=== PATIENT | female | born 1965 | race Asian ===

== ENCOUNTER 2017-06-18 07:52 | Day surgery (SDC) | payer OTHER ==
[2017-06-18] MEDS ORDERED: LACTATED RINGERS 1,000 ML IV ONE (08:01)
--- NOTE | 2017-06-18 09:29 | HISTORY & PHYSICAL EXAMINATION ---
HPI - History of Present Illness HPI Comment/Other: Here for screening colonoscopy Past Medical History: Reviewed history and no changes required: Low back pain Dermititis Right lateral epicondylitis Past Surgical History: Reviewed history and no changes required: Bone grafting of right jaw 2014 Family History Summary: Reviewed history and no changes required: 04/24/2017 Mother () - Has Family History of Other Medical Problems - Breast cancer - Entered On: 04/24/2017 Father () - Has Family History of Other Medical Problems - Pancreatic cancer - Entered On: 04/24/2017 Risk Factors: Smoked Tobacco Use: Never smoker Drug use: no Alcohol use: no Exercise: yes Times per week: 5 Type of Exercise: treadmill Review of Systems See HPI Problems were reviewed with the patient during this visit. Medications were reviewed with the patient during this visit. No known meds. Allergies were reviewed with the patient during this visit. No known allergies. Physical Exam General: well developed, well nourished, in no acute distress Lungs: clear bilaterally to A & P Heart: regular rate and rhythm, S1, S2 without murmurs, rubs, gallops, or clicks Abdomen: bowel sounds positive; abdomen soft and non-tender without masses, organomegaly, or hernias noted Pulses: pulses normal in all 4 extremities Extremities: no clubbing, cyanosis, edema, or deformity noted with normal full range of motion of all joints Cervical Nodes: no significant adenopathy Psych: alert and cooperative; normal mood and affect; normal attention span and concentration Impression & Recommendations: Problem # 1: Screening for colon cancer Proceed with colonoscopy. 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
[2017-06-18] MEDS ORDERED: fentaNYL 100 MCG/2 ML VIAL IVP ONE (09:33)
[2017-06-18] MEDS ORDERED: MIDAZOLAM 2 MG/2 ML VIAL IVP ONE (09:33)
[2017-06-18 10:52] VITALS: BP 119/63
== END 2017-06-18 07:53 | disposition home or self-care (01) ==
LOC: SDS 07:52
PROVIDERS: ATTEND Surgery
PROC: 0DBP8ZX Excision of Rectum, Via Natural or Artificial Opening Endoscopic, Diagnostic (ICD-10-PCS; principal; 2017-06-18 09:00)
DX: Z12.11 Encounter for screening for malignant neoplasm of colon (principal); D12.8 Benign neoplasm of rectum
CPT/HCPCS: 45380; 45385; J7120

== ENCOUNTER 2022-12-05 11:02 | Outpatient (CLI) | payer OTHER ==
[2022-12-05 11:51] VITALS: BP 110/72
--- NOTE | 2022-12-05 11:51 | SLEEP CARE CONSULTATION ---
Information from patient questionnaire entered by Ruth Ann Prescott. I have reviewed and concur with the information entered by Ruth Ann Prescott. This document represents the service I personally performed and the decisions made by me, Rani Ybarra ARNP. History of Present Illness Service Date and Time: 12/05/2022 1102 Reason for Visit: New patient Chief Complaint: reports: Snoring Date of Onset: YRS Usual bedtime: MIDNIGHT Time it takes to fall asleep: MAYBE HALF AN HR Snores at night: Yes Observed to quit breathing while asleep: No Sleeps alone due to snoring: No Number of times waking at night: 0 Reasons for waking at night: reports: Bathroom (SELDOM). denies: Choking, Snoring, Gasping for air Toss, Turn, or Twitch while sleeping: No Recalls having dreams: Yes Usually gets out of bed at: 9-10AM Feels refreshed in the morning: Yes Morning headache: No Sleepy or fatigued during the day: No Ever fallen asleep while driving: No Takes day naps: No (rarely) Dreams during day naps: No Prior sleep studies: No Additional HPI information: I had the pleasure of seeing NURYS CEVALLOS today regarding the possibility of her having a sleep disorder. Her current complaint is snoring. She states her was diagnosed sleep apnea recently and just got his CPAP. She has been told by her children that she snores for many years. Her also agrees with the snoring but has not told her she has pauses in breathing or gasping in her sleep. 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 Patient is and lives in [place]. Have you smoked in the past 12 months: No Alcohol use: Yes Alcohol amount and frequency: SOCIAL DRINKING ONLY Caffeine use: Yes Caffeine amount and frequency: 1-2 COFFEE A WEEK TEA 4 X WEEK Family History Family history of sleep disordered breathing: Yes (her cousin and son diagnosed with sleep apnea) Family Hx Sleep Apnea: Mother: Snoring Allergies and Home Medications Known drug allergies: No Drug allergies reviewed: Yes (NKDA) Home medication list reviewed: Yes Allergy and home medication list: Medications: Amlodipine 2.5 mg daily Vitamins Review of Systems Cardiovascular: reports: high blood pressure Gastrointestinal: denies: heartburn Neurological: denies: headaches, head trauma Psychiatric: denies: anxiety, depression Ear/Nose/Throat: denies: tonsillectomy, wisdom teeth removed Endocrine: denies: thyroid disease Physical Exam Vital signs obtained and entered by: RUTH ANN Roque MA Blood Pressure: 110/72 (LEFT ARM) Cuff size: regular Heart Rate: 92 O2 Saturation: 99 Height: 5 ft 3 in Weight: 121 lb 9.6 oz Body Mass Index: 21.5 BMI Classification: Normal Neck circumference: 13.5 Mouth and throat: narrow oropharynx Soft palate: normal Hard palate: normal Uvula: normal Uvula visualization: 25% Mallampati Class III Tongue: enlarged in size with teeth friedman on lateral edges Tonsils: small Neck: normal w/o lymphadenopathy or thyromegaly Heart: regular rate and rhythm Lungs: clear bilaterally Impression and Plan 1. Suspected Obstructive Sleep Apnea-Hypopnea Syndrome, as suggested by a history of loud and irregular snoring and hypertension. Narrow oropharynx and obesity are common predisposing factors for obstructive sleep apnea-hypopnea s yndrome. I recommend proceeding to polysomnography to confirm the diagnosis and to assess severity. If the patient has significant sleep disordered breathing, a manual CPAP titration study will also be performed to find the optimal treatment pressure. I informed the patient of what the sleep studies involve and after some discussion, obtained agreement to proceed. The pathophysiology of obstructive sleep apnea-hypopnea syndrome was discussed with the patient and health risks of cardiovascular and cerebrovascular disease if not treated. Risks of drowsy driving discussed in detail and patient advised to avoid long distance driving and to line puller at the first sign of drowsiness. Patient agreed to plan. * Schedule polysomnography * Avoid alcohol, sedative and muscle relaxant around bedtime. * Review instructions provided by trained office staff on how to prepare for the sleep study. * Return for follow-up after sleep study completed. Visit Type: In Office Time Spent with Patient (minutes): 32 Provider Statement: I spent 100% of the Face to Face Visit with the patient with greater than 50% spent counseling the patient and coordination of care.
== END 2022-12-05 11:03 | disposition home or self-care (01) ==
LOC: SC 11:02
PROVIDERS: ATTEND Nurse Practitioner Family
DX: R06.83 Snoring (principal); I10 Essential (primary) hypertension
CPT/HCPCS: 99203; 99212

== ENCOUNTER 2023-01-15 22:12 | Outpatient (CLI) | payer OTHER | END 2023-01-15 22:13 | disposition home or self-care (01) | LOC: SC 22:12 | PROVIDERS: ATTEND Nurse Practitioner Family | DX: R06.83 Snoring (principal); I10 Essential (primary) hypertension | CPT/HCPCS: 95810 ==

== ENCOUNTER 2023-01-28 09:20 | Outpatient (CLI) | payer OTHER ==
[2023-01-28 09:43] VITALS: BP 122/70
--- NOTE | 2023-01-28 09:43 | SLEEP CARE CONSULTATION ---
Information from patient questionnaire entered by Vika Prescott. I have reviewed and concur with the information entered by Vika Prescott. This document represents the service I personally performed and the decisions made by , Rani Ybarra ARNP. History of Present Illness Service Date and Time: 01/28/2023919 Initial Alexander Sleepiness Scale score: 1 (12/05/22) Current Alexander Sleepiness Scale score: 0 (01/28/23) Additional HPI information: NURYS CEVALLOS returns for follow up and results of the recently performed polysomnography. The patient was informed of the following findings: No significant sleep disordered breathing with an average AHI of 0.0 and talita oxygen saturation of 82%. I explained the pathophysiology behind obstructive sleep apnea. Patient does not have sleep apnea and was advised how weight gain could increase the risk of developing sleep apnea in the future. Patient has light to loud snoring. Snoring can be reduced by weight loss. Weight loss is best achieved with diet consult. Patient instructed to contact PCP for referral. Snoring can also be treated with an oral appliance from a dentist. Advised to check insurance coverage. In addition, an ENT evaluation can be do to see if other treatment is indicated. Patient does not drink significant alcohol, socially only. Patient was cautioned about risks of drowsy driving until sleepiness symptoms resolve. Patient denies drowsy driving. Sleep Study - Results Type of Sleep Study: Polysomnography (COMPLETED 01/15/23) Prior sleep studies: No Polysomnography/Home Sleep Study results: IMPRESSION: The quality of the study is good. The patient had reduced sleep efficiency due to several prolonged awakenings during the night. The sleep architecture was abnormal for lack of REM sleep. Respiratory monitoring showed no significant sleep disordered breathing (AHI = 0.0) hypoxia (talita oxygen saturation of 82% but only 0.61% to the total sleep time was spent with oxygen saturation below 90%). The patient slept adequately in supine position (supine AHI = 0.0; non-supine = 0.00). Snore was light to loud in intensity. There was no significant periodic leg movement of sleep. Cardiac rhythm was normal sinus rhythm without significant arrhythmia. No abnormal behavior (parasomnia) observed during the night. Allergies and Home Medications Known drug allergies: No Drug allergies reviewed: Yes Home medication list reviewed: Yes (no changes) Allergy and home medication list: Allergies No Known Drug Allergies Allergy (Verified 01/27/23 16:13) Review of Systems Review of systems same as previous: Yes (no changes) Physical Exam Vital signs obtained and entered by: VIKA oRque MA Blood Pressure: 122/70 (LEFT ARM) Cuff size: regular Heart Rate: 84 O2 Saturation: 98 Height: 5 ft 3 in Weight: 121 lb 6.4 oz Body Mass Index: 21.4 BMI Classification: Normal Impression and Plan Snoring but no significant sleep disordered breathing. Patient advised that often weight loss will reduce snoring as well as apnea risk. An oral appliance can also be used for snoring. This would require a dental consultation. Patient cautioned not to use other online appliances as can cause bite issues. A list of accredited dentists in [facility] and one local dentist who makes oral appliances is available in office as needed. Patient is advised to check if insurance will cover. An ENT consult can also be helpful to determine if any other treatment is an option. * Avoid alcohol consumption near bedtime * Return as needed for follow up. Counseling Topics: Weight control Visit Type: In Office Time Spent with Patient (minutes): 12 Provider Statement: I spent 100% of the Face to Face Visit with the patient with greater than 50% spent counseling the patient and coordination of care.
== END 2023-01-28 09:21 | disposition home or self-care (01) ==
LOC: SC 09:20
PROVIDERS: ATTEND Nurse Practitioner Family
DX: R06.83 Snoring (principal)
CPT/HCPCS: 99212

== ENCOUNTER 2024-06-23 13:00 | Outpatient (CLI) | payer OTHER ==
--- NOTE | 2024-06-23 13:57 | Sleep Patient Instructions ---
Sleep Center Visit Summary - Patient Visit Information Reason for Visit: Annual follow-up - Patient Instructions Instructions Attached: Sleep Study Home Monitor Additional Instructions: You will be completing a sleep study, either an in-lab polysomnography (PSG) or home sleep study (HST). You will follow-up in the sleep care office after the sleep study is completed to hear the results and talk about therapy, if needed. You will be called by our office staff to schedule this appointment, but you may contact us with any questions. - Clinic Information Contact: [facility] [address] [place] [address] [email or web address] T: [phone]
--- NOTE | 2024-06-23 14:02 | SLEEP CARE CONSULTATION ---
Information from patient questionnaire entered by Ruth Ann Prescott. I have reviewed and concur with the information entered by Ruth Ann Prescott. This document represents the service I personally performed and the decisions made by me, Rani Ybarra ARNP. History of Present Illness Service Date and Time: 06/23/2024 1300 Reason for follow up: annual (LAST SEEN 12/2022 NO CPAP) Prior sleep studies: No Type of Sleep Study: Polysomnography (COMPLETED 01/15/23) HPI additional information: NURYS CEVALLOS was last seen in December of 2022 and she returned today for annual follow-up. Her last sleep study done 01/15/23 was negative for sleep disordered breathing. Her current complaints are snoring and observed pauses in breathing. Her has been telling her that she probably has sleep apnea. He is using a CPAP for his sleep apnea. She did do a study but she did not feel the study was good because she is usually sleeping much later in the evening and was not sleeping well the night of the study here in the sleep lab. The patient tells me that she normally goes to bed around midnight, and it takes her approximately 10-15 minutes to fall asleep. She has been told that she snores loudly and irregularly at night. She has been observed to stop breathing in her sleep. Her bed partner can still sleep in the same bed. She can recall waking up on the average of 0-1 times during the night. Most of the time she wakes up because of bathroom. She has not awakened for her own snoring, choking, and having to gasp for air. There is not a lot of tossing and turning in her sleep. Generally she can recall having dreams. She usually wakes up at 0330, then goes back to sleep 30 minutes later and gets up about 8-9 AM and feels refreshed. She usually does not have a morning headache. During the day she does not feel sleepy and fatigued. She has never fallen asleep while driving nor has any accident due to sleepiness. She usually does not take naps during the day. If she naps, upon falling asleep during the day she denies having vivid dreams. She reports having impaired concentration during the day. There is no somniloquy (sleep talking) or somnambulism (sleep walking). She has never experienced sleep paralysis, cataplexy, or symptoms of restless leg syndrome. Sleep Study - Results Type of Sleep Study: Polysomnography (COMPLETED 01/15/23) Prior sleep studies: No Subjective Initial [place] Sleepiness Scale score: 1 (12/05/22) Current [place]ford Sleepiness Scale score: 0 (06/23/24) Allergies and Home Medications Known drug allergies: No Drug allergies reviewed: Yes Home medication list reviewed: Yes (Prilosec) Allergy and home medication list: Allergies No Known Drug Allergies Allergy (Verified 06/23/24 13:18) Review of Systems Review of systems same as previous: No (ENDOSCOPY) Physical Exam Vital signs obtained and entered by: RUTH ANN Roque MA Blood Pressure: 130/90 (06/23/24) Cuff size: regular Heart Rate: 80 O2 Saturation: 99 Height: 5 ft 3 in Weight: 121 lb 6.4 oz Body Mass Index: 21.4 BMI Classification: Normal Impression and Plan 1. Suspected Obstructive Sleep Apnea-Hypopnea Syndrome, as suggested by a history of loud and irregular snoring and observed cessation of breath while asleep. I recommend proceeding to polysomnography to confirm the diagnosis and to assess severity. If the patient has significant sleep disordered breathing, a manual CPAP titration study will also be performed to find the optimal treatment pressure. I informed the patient of what the sleep studies involve and after some discussion, obtained agreement to proceed. The pathophysiology of obstructive sleep apnea-hypopnea syndrome was discussed with the patient and health risks of cardiovascular and cerebrovascular disease if not treated. Risks of drowsy driving discussed in detail and patient advised to avoid long distance driving and to pin puller at the first sign of drowsiness. Patient agreed to plan. * Schedule polysomnography +- manual CPAP titration study and return in 1-2 weeks after the study to discuss result and initiate therapy. * Avoid long distance driving or driving when feeling sleepy. * Avoid alcohol, sedative and muscle relaxant around bedtime. * Attempt to lose weight. * Review instructions provided by trained office staff on how to prepare for the sleep study. * Return for follow-up after sleep study completed. Plan: PSG and follow up Visit Type: In Office Time Spent with Patient (minutes): 20 Provider Statement: I spent 100% of the Face to Face Visit with the patient with greater than 50% spent counseling the patient and coordination of care.
[2024-06-23 14:08] VITALS: BP 130/90; O2SAT 99
== END 2024-06-23 13:01 | disposition home or self-care (01) ==
LOC: SC 13:00
PROVIDERS: ATTEND Nurse Practitioner Family
DX: R06.83 Snoring (principal); R06.81 Apnea, not elsewhere classified
CPT/HCPCS: 99212; 99213